=== PATIENT | female | born 1960 | race Caucasian/White ===

== ENCOUNTER → 2016-11-27 | Outpatient (CLI) | payer OTHER ==
[~2016-11-27] MED LIST: ISOVUE-370 76% 100ML VIAL (Q9967) As Ordered ONE
--- NOTE | 2016-11-27 11:53 | REP ---
Clinical: Right renal mass. Technique: Axial contrast enhanced images from the lung bases to the pubic symphysis using 100 ml Isovue 370 intravenous contrast material with precontrast and delayed images of the abdomen as well as coronal and sagittal re-formations. Comparison: 11/02/2015. Findings: Lung bases are clear. Visualized heart and pericardium normal. Right kidney demonstrates small subcentimeter fat-containing lesions suggesting sub centimeter angiomyolipomas and unchanged when compared to prior examination. The left kidney is unremarkable. The remainder of the urinary tract system including collecting system and bladder appears normal. Liver, spleen, pancreas, gallbladder, and bilateral adrenal glands are normal. The patient is status post gastric bypass surgery. The enteric system is without obstruction or acute inflammatory process. Small bowel surgery and partial sigmoid resection in the pelvis is noted. Scattered colonic diverticula noted without acute diverticulitis. 5 mm fat containing periumbilical hernia identified. Pelvis demonstrates normal bladder and age-appropriate uterus/adnexa. No pelvic fluid or ascites. No adenopathy. Abdominal aorta and vasculature is normal. Musculoskeletal structures demonstrate degenerative changes. Impression: 1. 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 Remainder of the urinary tract system is normal. 2. Stable, normal postsurgical changes. 3. No acute intra-abdominal or pelvic pathology appreciated. Signed by Yoni Batista MD 11/27/2016 11:44 A
== END ==
LOC: M RAD 10:41
PROVIDERS: ATTEND Nurse Practitioner Women's Health
DX: D30.01 Benign neoplasm of right kidney (principal)
CPT/HCPCS: 74178; Q9967

== ENCOUNTER → 2017-10-14 | Outpatient (REF) ==
[2017-10-13 21:56] LABS: APPEARANCE, BODY FLUID HAZY (CLEAR); SOURCE, BODY FLUID RT KNEE; SYNOVIAL FLUID COLOR YELLOW (YELLOW)
[2017-10-13 21:57] LABS: CRYSTALS, BODY FLUID NONE SEEN (NONE SEEN); SOURCE, BODY FLUID CRYSTALS RT KNEE
[2017-10-13 22:09] LABS: BF MONONUCLEAR CELL % 34.6 % (0-0); BF POLYMORPHONUCLEAR CELL % 65.4 % (0-0); RBC BODY FLUID < 2 10^3/uL (<2); WBC BODY FLUID 3399 /uL (0-10)
[2017-10-13 22:11] LABS: BF DIFF IF INDICATED? YES (NO)
== END ==
LOC: M LAB REF 08:33
DX: Z11.8 Encounter for screening for other infectious and parasitic diseases (principal)

== ENCOUNTER → 2020-10-25 | Outpatient (REF) | payer OTHER ==
[2020-10-25 18:11] LABS: BASO # 0.1 10^3/uL (0.0-0.2); BASO % 0.8 % (0.0-1.0); EOS # 0.2 10^3/uL (0.0-0.5); EOS % 2.4 % (0.0-3.0); HEMATOCRIT 39.6 % (36.0-47.0); HEMOGLOBIN 12.2 g/dl (12.0-15.5); LYMPH # 1.5 10^3/uL (1.5-5.0); LYMPH % 23.1 % (24.0-44.0); MEAN CORPUSCULAR HEMOGLOBIN 29.8 pg (27.0-33.0); MEAN CORPUSCULAR HGB CONC 30.8 g/dl (32.0-36.5); MEAN CORPUSCULAR VOLUME 96.8 fl (80.0-96.0); MONO # 0.6 10^3/uL (0.0-0.8); MONO % 8.6 % (2.0-8.0); NEUTROPHILS # 4.3 10^3/uL (1.5-8.5); NEUTROPHILS % 64.5 % (36.0-66.0); PLATELET COUNT, AUTOMATED 399 10^3/uL (150-450); RED BLOOD COUNT 4.09 10^6/uL (4.00-5.40); WHITE BLOOD COUNT 6.6 10^3/uL (4.0-10.0)
[2020-10-25 18:23] LABS: APPEARANCE, URINE CLEAR (CLEAR); BACTERIA, URINE AUTO 1+ (NEGATIVE); BILIRUBIN, URINE AUTO NEGATIVE (NEGATIVE); BLOOD, URINE BLOOD NEGATIVE (NEGATIVE); COLOR, URINE YELLOW (YELLOW); CREATININE,RANDOM URINE 48.7 MG/DL; GLUCOSE, URINE (UA) AUTO NEGATIVE (NEGATIVE); KETONE, URINE AUTO NEGATIVE (NEGATIVE); LEUKOCYTE ESTERASE, URINE AUTO NEGATIVE (NEGATIVE); NITRITE, URINE AUTO NEGATIVE (NEGATIVE); PROTEIN, URINE AUTO NEGATIVE (NEGATIVE); RBC, URINE AUTO 0 /HPF (0-3); SQUAMOUS EPITHELIAL CELL UR AU 1 /HPF (0-6); TOTAL PROTEIN,RANDOM URINE 14.3 MG/DL (0.0-12.0); UROBILINOGEN, URINE AUTO 0.2 mg/dL (0.0-2.0); WBC, URINE AUTO 2 /HPF (0-3)
[2020-10-25 18:24] LABS: ALBUMIN 4.1 GM/DL (3.2-5.2); ALT/SGPT 27 U/L (12-78); BILIRUBIN,TOTAL 0.3 MG/DL (0.2-1.0); BLOOD UREA NITROGEN 16 MG/DL (7-18); CARBON DIOXIDE LEVEL 32 MEQ/L (21-32); CHLORIDE LEVEL 103 MEQ/L (98-107); COMPLEMENT C3 139 MG/DL (90-180); COMPLEMENT C4 26 MG/DL (10-40); GLOMERULAR FILTRATION RATE > 60.0 (>51); GLUCOSE, FASTING 80 MG/DL (70-100); POTASSIUM SERUM 3.9 MEQ/L (3.5-5.1); SODIUM LEVEL 139 MEQ/L (136-145); TOTAL PROTEIN 7.4 GM/DL (6.4-8.2)
[2020-10-25 18:29] LABS: TOTAL 25(OH) VITAMIN D 25.9 NG/ML (30.0-100.0)
[2020-10-25 19:09] LABS: HEPATITIS B CORE ANTIBODY IGM NEGATIVE (NEGATIVE); HEPATITIS C VIRUS ABY INDEX 0.1 INDEX (<0.8)
[2020-10-25 19:12] LABS: ERYTHROCYTE SEDIMENTATION RATE 33 mm/hr (0-30)
[2020-10-25 19:16] LABS: HEPATITIS B SURFACE ANTIGEN NEGATIVE (NEGATIVE)
== END ==
LOC: M SFHCRHEU 12:35
PROVIDERS: ATTEND Internal Medicine Rheumatology
DX: M32.19 Other organ or system involvement in systemic lupus erythematosus (principal)

== ENCOUNTER → 2021-04-11 | Outpatient (REF) | payer OTHER ==
[2021-04-11 12:41] LABS: BASO # 0.1 10^3/uL (0.0-0.2); BASO % 0.8 % (0.0-1.0); EOS # 0.2 10^3/uL (0.0-0.5); EOS % 3.2 % (0.0-3.0); HEMATOCRIT 36.9 % (36.0-47.0); HEMOGLOBIN 11.6 g/dl (12.0-15.5); LYMPH # 2.3 10^3/uL (1.5-5.0); LYMPH % 31.3 % (24.0-44.0); MEAN CORPUSCULAR HEMOGLOBIN 28.4 pg (27.0-33.0); MEAN CORPUSCULAR HGB CONC 31.4 g/dl (32.0-36.5); MEAN CORPUSCULAR VOLUME 90.4 fl (80.0-96.0); MONO # 0.6 10^3/uL (0.0-0.8); MONO % 8.8 % (2.0-8.0); NEUTROPHILS % 55.6 % (36.0-66.0); PLATELET COUNT, AUTOMATED 394 10^3/uL (150-450); RED BLOOD COUNT 4.08 10^6/uL (4.00-5.40); WHITE BLOOD COUNT 7.3 10^3/uL (4.0-10.0)
[2021-04-11 13:19] LABS: ERYTHROCYTE SEDIMENTATION RATE 44 mm/hr (0-30)
[2021-04-11 14:56] LABS: ALBUMIN 3.8 GM/DL (3.2-5.2); ALT/SGPT 32 U/L (12-78); BILIRUBIN,TOTAL 0.3 MG/DL (0.2-1.0); BLOOD UREA NITROGEN 20 MG/DL (7-18); CALCIUM LEVEL 9.2 MG/DL (8.8-10.2); CARBON DIOXIDE LEVEL 28 MEQ/L (21-32); CHLORIDE LEVEL 104 MEQ/L (98-107); GLOMERULAR FILTRATION RATE > 60.0 (>45); GLUCOSE, FASTING 90 MG/DL (70-100); POTASSIUM SERUM 3.9 MEQ/L (3.5-5.1); SODIUM LEVEL 139 MEQ/L (136-145)
== END ==
LOC: M SFHCRHEU 11:35
PROVIDERS: ATTEND Internal Medicine Rheumatology
DX: M32.19 Other organ or system involvement in systemic lupus erythematosus (principal); D86.89 Sarcoidosis of other sites; Z79.899 Other long term (current) drug therapy

== ENCOUNTER → 2022-03-04 | Outpatient (CLI) | payer OTHER | LOC: M RAD 09:12 | PROVIDERS: ATTEND Nurse Practitioner Adult Health | DX: R91.8 Other nonspecific abnormal finding of lung field (principal) ==

== ENCOUNTER → 2022-08-20 | Outpatient (REF) | payer OTHER ==
[2022-08-20 12:15] LABS: APPEARANCE, URINE CLEAR (CLEAR); BILIRUBIN, URINE AUTO NEGATIVE (NEGATIVE); BLOOD, URINE BLOOD NEGATIVE (NEGATIVE); COLOR, URINE YELLOW (YELLOW); GLUCOSE, URINE (UA) AUTO NEGATIVE (NEGATIVE); KETONE, URINE AUTO NEGATIVE (NEGATIVE); LEUKOCYTE ESTERASE, URINE AUTO NEGATIVE (NEGATIVE); NITRITE, URINE AUTO NEGATIVE (NEGATIVE); PROTEIN, URINE AUTO NEGATIVE (NEGATIVE); SPECIFIC GRAVITY URINE AUTO 1.019 (1.002-1.035); UROBILINOGEN, URINE AUTO 0.2 mg/dL (0.0-2.0)
[2022-08-20 12:27] LABS: BACTERIA, URINE AUTO NEGATIVE (NEGATIVE); MUCUS, URINE SMALL (NEGATIVE); RBC, URINE AUTO 1 /HPF (0-3); SQUAMOUS EPITHELIAL CELL UR AU 3 /HPF (0-6); WBC, URINE AUTO 0 /HPF (0-3)
[2022-08-20 12:49] LABS: TOTAL PROTEIN,RANDOM URINE 18.4 MG/DL (0.0-14.0)
[2022-08-20 12:54] LABS: CREATININE,RANDOM URINE 106.7 MG/DL
== END ==
LOC: M SFHCRHEU 10:05
PROVIDERS: ATTEND Internal Medicine Rheumatology
DX: M32.19 Other organ or system involvement in systemic lupus erythematosus (principal); D86.89 Sarcoidosis of other sites; L40.8 Other psoriasis; Z79.899 Other long term (current) drug therapy; E55.9 Vitamin D deficiency, unspecified; H04.129 Dry eye syndrome of unspecified lacrimal gland

== ENCOUNTER → 2023-02-18 | Outpatient (REF) | payer OTHER | LOC: M SFHCRHEU 15:47 | PROVIDERS: ATTEND Internal Medicine Rheumatology | DX: Z53.9 Procedure and treatment not carried out, unspecified reason (principal) ==

== ENCOUNTER → 2024-01-26 | Outpatient (REF) | payer OTHER | LOC: M SFHCRHEU 15:21 | PROVIDERS: ATTEND Internal Medicine Rheumatology | DX: M32.19 Other organ or system involvement in systemic lupus erythematosus (principal) ==